=== PATIENT | female | born 1970 | race Two or more races ===

== ENCOUNTER 2020-02-03 08:23 | Outpatient (REF) | payer OTHER, SELFPAY ==
--- NOTE | 2020-02-03 | US_ITS ---
EXAMINATION: US ABDOMEN COMPLETE CLINICAL INFORMATION: Liver lesion. Hypodensity of kidney. COMPARISON: CT abdomen and pelvis 12/29/2019. TECHNIQUE: Real-time imaging of the abdominal viscera. FINDINGS: PANCREAS: Normal. ABDOMINAL AORTA: The proximal, mid, and distal segments are normal in caliber. INFERIOR VENA CAVA: Visualized portions are normal. LIVER: The liver is normal size; contour with mild increased echogenicity. There is a 1.8 x 1.3 x 1.8 cm echogenic lesion right hepatic lobe, likely hemangioma. No additional lesions seen. There is no intrahepatic biliary duct dilatation seen. GALLBLADDER: Normal. The gallbladder is physiologically distended without evidence of stones, sludge, polyps, wall thickening or pericholecystic fluid. COMMON BILE DUCT: Normal in caliber measuring 0.3 cm in diameter. RIGHT KIDNEY: Normal. No hydronephrosis. No renal calculi or focal parenchymal lesions. The kidney measures 10.3 cm in maximum dimension. LEFT KIDNEY: There is anechoic cyst in lower pole measuring 1.1 x 1.0 x 1.2 cm. No hydronephrosis or renal calculi. The kidney measures 11.9 cm in maximum dimension. SPLEEN: Normal. The spleen measures 9.2 cm in maximum dimension. FREE FLUID: None. US/US abdomen complete IMPRESSION: Likely small right hepatic hemangioma measuring 1.8 cm. 1.5 cm hypodensity was seen in medial right hepatic lobe on the previous CT abdomen exam. Small anechoic cyst in lower pole measuring 1.2 cm. The rest of the abdominal ultrasound is unremarkable.
== END 2020-02-03 08:24 | disposition home or self-care (01) ==
LOC: HO.US 08:23
PROVIDERS: PCP Internal Medicine; Visit Provider Internal Medicine
DX: K76.89 Other specified diseases of liver (principal); N28.9 Disorder of kidney and ureter, unspecified
CPT/HCPCS: 76700

== ENCOUNTER 2023-09-13 12:46 | Outpatient (AMB) | payer OTHER, SELFPAY ==
--- NOTE | 2023-09-13 13:03 | MHC.OFFVIS ---
Vital Signs 09/13/23 13:09 Weight 210 lb 5.136 oz BP 134/66 Blood Pressure Location Rt brachial Position Sitting Pulse 67 Pulse Source Pulse Oximeter Pulse Oximetry (%) 96 Oxygen Delivery Method Room Air Intake Visit Reasons: Elev Titer Intake Note: New patient, externally referred by [facility], presents to office today for evaluation of abnormal lab. Heel Padder Required: No Accompanied by: Self / Same As Patient Allergies Sulfa (Sulfonamide Antibiotics) [SULFA (SULFONAMIDE ANTIBIOTICS)] Allergy (Mild, Unverified 09/13/23 13:09) HIVES sulfacetamide Allergy (Unknown, Verified 09/13/23 13:09) Unknown HPI Comments Details: Ms. Torres 52 yoF presents for evaluation of +JENN(1:80 speckled and homogenous pattern) in the context of fatigue. She is still fatigued but since she has started the Zoloft she is sleeping better and the fatigue is not as bad as it used to be. --Since 2012 experiencing increased fatigue, anxiety, depression perhaps brought on by a major job change. With stress, she also had a physical reaction such as rash; which recurred 2021 when her mom . The rash comes out when there is stress and anxiety. Has been treated by PCP Bethomethasone and a shampoo as it also comes out on the scalp. DERM then prescribed Promeleg for her face, --chronic pain daily, right shoulder, right side of back, both hips hurts during sleep- has to constantly turn. --right side of neck and shoulder hurts a lot when stressed. --working on getting a therapist; waiting to be called. --takes sertraline and occasional ativan. --menopausal --thinning hair, but no bald patches - thinks it coincides with her age, having menopause. -denies dry eyes, mouth, mouth sores, photosensitivity, --denies GI and Urinary symptoms, unexplained weight loss. --denies red, warm swollen joints. --denies chronic headaches, jaw pain. --smoker --GERD with occasional omeprazole. --denies blood clot --denies family hx of known autoimmune --left ankle swelling happens more with plane travel, hot weather. [facility] Medical History (Updated 09/13/23 @ 13:49 by GAIL Howell-RJ) Back pain of thoracolumbar region JENN positive Review of Systems Const All systems reviewed & are unremarkable except as noted in HPI and below Physical Exam Vital Signs: Last Vital Signs Pulse 67 09/13/23 13:09 BP 134/66 09/13/23 13:09 Pulse Ox 96 09/13/23 13:09 Oxygen Delivery Method Room Air 09/13/23 13:09 Vital signs reviewed. Constitutional: Non-toxic appearing. No acute distress. Well-developed and well-nourished. HEENT: Normocephalic and atraumatic. External auditory canals without erythema or edema bilaterally. Dry mucous membranes. No pharyngeal erythema or exudates. Skin: Warm and dry. No rashes or lesions noted. Neck: Full and painless range of motion. No cervical lymphadenopathy. Cardio: Regular rate and rhythm. No murmurs, gallops, or rubs. No lower extremity edema. No JVD. Pulmonary: No respiratory distress. No accessory muscle usage. Gastrointestinal: Soft, nontender, and nondistended in all 4 quadrants. Normoactive bowel sounds in all 4 quadrants. Genitourinary: No CVA tenderness. Musculoskeletal: Normal range of motion in joints throughout the body. mild scoliosis to thoracic spine Neuro: Alert and oriented x4. Cranial nerves 2-12 grossly intact. No focal deficits appreciated. Assessment & Plan Assessment & Plan (1) JENN positive: Code(s): R76.8 - Other specified abnormal immunological findings in serum Category: Medical (2) Back pain of thoracolumbar region: Code(s): M54.50 - Low back pain, unspecified; M54.6 - Pain in thoracic spine Category: Medical Plan #+JENN/Fatigue:The patient does not present as having a CTD or inflammatory process. The JENN is 1:80, not significant in value but I will do further analysis with additional labs. It seems her fatigue is more a result of stress, depression and anxiety and less of a physiologic pathology. #Right paraspinal muscle fatigue/pain: Patient is tilted to the right - will obtain xray of lumbar and thoracic spine and assess for scoliosis and DDD. Patient should focus on stretches that helps to loosen and build the muscles. I spent 35 minutes reviewing history, evaluating patient and documenting. Fu as needed Orders: Orders Erythrocyte Sedimentation Rate 09/13/23 R76.8 - Other specified abnormal immunological findings in serum Aldolase 09/13/23 R76.8 - Other specified abnormal immunological findings in serum Anti-Centromere B Antibodies 09/13/23 R76.8 - Other specified abnormal immunological findings in serum Anti DNA DS Antibody 09/13/23 R76.8 - Other specified abnormal immunological findings in serum Angiotensin Converting Enzyme 09/13/23 R76.8 - Other specified abnormal immunological findings in serum Complement C3 09/13/23 R76.8 - Other specified abnormal immunological findings in serum Complement C4 09/13/23 R76.8 - Other specified abnormal immunological findings in serum Complete Blood Count Auto Diff 09/13/23 R76.8 - Other specified abnormal immunological findings in serum C Reactive Protein 09/13/23 R76.8 - Other specified abnormal immunological findings in serum Creatine Kinase Total 09/13/23 R76.8 - Other specified abnormal immunological findings in serum Immunoglobulins,IgG IgA IgM 09/13/23 R76.8 - Other specified abnormal immunological findings in serum Protein Electrophoresis, Serum 09/13/23 R76.8 - Other specified abnormal immunological findings in serum Scleroderma 70 Antibody 09/13/23 R76.8 - Other specified abnormal immunological findings in serum Sjogren's Antibodies 09/13/23 R76.8 - Other specified abnormal immunological findings in serum Thyroid Peroxidase Antibodies 09/13/23 R76.8 - Other specified abnormal immunological findings in serum Liver Kidney Microsomal Ab 09/13/23 R76.8 - Other specified abnormal immunological findings in serum Smooth Muscle Antibody 09/13/23 R76.8 - Other specified abnormal immunological findings in serum XR lumbar spine 2-3V 09/13/23 M54.50 - Low back pain, unspecified, M54.6 - Pain in thoracic spine JENN Reflex Titer and Pattern 09/13/23 R76.8 - Other specified abnormal immunological findings in serum Anti Extractable Nuclear Ag 09/13/23 R76.8 - Other specified abnormal immunological findings in serum Comprehensive Met. Panel 09/13/23 R76.8 - Other specified abnormal immunological findings in serum Immunofixation Pnl, Serum 09/13/23 R76.8 - Other specified abnormal immunological findings in serum Immunofixation, Random Urine 09/13/23 R76.8 - Other specified abnormal immunological findings in serum UA w Microscopic 09/13/23 R76.8 - Other specified abnormal immunological findings in serum Thyroglobulin Antibodies 09/13/23 R76.8 - Other specified abnormal immunological findings in serum Thyroid Stimulating Hormone 09/13/23 R76.8 - Other specified abnormal immunological findings in serum Mitochondrial Antibody 09/13/23 R76.8 - Other specified abnormal immunological findings in serum XR thoracic spine 2V 09/13/23 M54.50 - Low back pain, unspecified, M54.6 - Pain in thoracic spine Coding Level of Care Code New Pt Level 4 (91859) Diagnoses JENN positive R76.8 Back pain of thoracolumbar region M54.50; M54.6
[2023-09-13 13:09] VITALS: BP 134/66; PULSE 67; O2SAT 96
== END 2023-09-13 14:30 | disposition home or self-care (01) ==
PROVIDERS: Visit Provider Nurse Practitioner Family
DX: R76.8 Other specified abnormal immunological findings in serum (principal); M54.50 Low back pain, unspecified; M54.6 Pain in thoracic spine
CPT/HCPCS: 99204

== ENCOUNTER → 2023-09-13 12:46 | Outpatient (BNVA) | payer OTHER, SELFPAY | PROVIDERS: Visit Provider Nurse Practitioner Family ==